=== PATIENT | male | born 1940 | race Caucasian/White ===

== ENCOUNTER 2016-06-13 08:54 | Emergency (ER) | payer MEDICARE, MEDICAID ==
--- NOTE | 2016-06-13 11:08 | ER Document Report ---
ED General - General Chief Complaint: Fall Stated Complaint: HEAD/ELBOW INJURY TRAVEL OUTSIDE OF THE [place] IN LAST 30 DAYS: No - HPI Patient complains to provider of: fall Notes: Patient's coming in for evaluation of fall at a local group home facility. Patient does have a history of dementia. Most of the history of present illness is obtained from EMS report printed patient fell getting out of bed. No loss of consciousness. Patient does have 2 skin abrasions to the right elbow. Patient does have a small laceration to the top of scalp bleeding is controlled. No signs of any other significant trauma patient is alert to voice upon evaluation - Related Data Allergies/Adverse Reactions: codeine [Codeine] Allergy (Verified 01/05/14 21:17) morphine [Morphine] Allergy (Verified 01/05/14 21:17) Past Medical History - Social History Smoking Status: Never Smoker Chew tobacco use (# tins/day): No Frequency of alcohol use: None Drug Abuse: None Family History: Arthritis, DM, Hypertension, Malignancy - Past Medical History Cardiac Medical History: Reports: Hx Coronary Artery Disease, Hx Hypercholesterolemia, Hx Hypertension Endocrine Medical History: Reports: Hx Diabetes Mellitus Type 2 GI Medical History: Reports: Hx Diverticulitis Musculoskeltal Medical History: Reports Hx Arthritis Psychiatric Medical History: Reports: Hx Dementia Past Surgical History: Reports: Hx Abdominal Surgery - to remove pencil, Hx Bowel Surgery - diverticulitis, Hx Cardiac Surgery - X2 stents placed - Immunizations Immunizations up to date: Yes Hx Diphtheria, Pertussis, Tetanus Vaccination: Yes Review of Systems - Review of Systems Notes: Dementia -: Yes ROS unobtainable due to patient's medical condition Physical Exam - Vital signs Vitals: Temp Pulse Resp BP Pulse Ox 97.3 F 65 16 145/56 H 98 06/13/16 09:15 06/13/16 09:15 06/13/16 09:15 06/13/16 09:15 06/13/16 09:15 Interpretation: Normal - General General appearance: Appears well, Alert - HEENT Head: Normocephalic, Atraumatic, Other - Patient with a 2 cm superficial laceration to the top of the scalp right side Eyes: Normal Pupils: PERRL Pharynx: Normal Neck: Normal - Respiratory Respiratory status: No respiratory distress Chest status: Nontender Breath sounds: Normal Chest palpation: Normal - Cardiovascular Rhythm: Regular Heart sounds: Normal auscultation Murmur: No - Abdominal Inspection: Normal Distension: No distension Bowel sounds: Normal Tenderness: Nontender Organomegaly: No organomegaly - Back Back: Normal, Nontender - Extremities General upper extremity: Normal inspection, Nontender, Normal color, Normal ROM , Normal temperature. No: Other - Abrasions to the right elbow General lower extremity: Normal inspection, Nontender, Normal color, Normal ROM , Normal temperature, Normal weight bearing. No: Swapna's sign - Neurological Neuro grossly intact: Yes [place] Coma Scale Eye Opening: Spontaneous [place] Coma Scale Verbal: Confused [place]on Coma Scale Motor: Obeys Commands [place] Coma Scale Total: 14 Speech: Normal - Psychological Associated symptoms: Normal affect, Normal mood - Skin Skin Temperature: Warm Skin Moisture: Dry Skin Color: Normal Course - Re-evaluation Re-evalutation: 06/13/16 14:35 The lacerations and abrasions were cleaned and dressed. Nurse apply Steri- Strips and Dermabond to the superficial lacerations of the scalp. Set DTs negative for any acute traumatic findings. Patient was discharged home - Vital Signs Vital signs: Temp Pulse Resp BP Pulse Ox 97.4 F 65 14 190/73 H 98 06/13/16 12:06 06/13/16 12:06 06/13/16 12:06 06/13/16 12:06 06/13/16 12:06 Procedures - Laceration/Wound Repair Head Wound length (cm): 2 Wound's Depth, Shape: Superficial, Linear Wound explored: Clean Irrigated w/ Saline (mLs): 500 Wound Repaired With: Steri-strips, Dermabond Post-procedure NV exam normal: Yes Complications: No Discharge - Discharge Clinical Impression: Abrasion of right arm Qualifiers: Encounter type: initial encounter Qualified Code(s): S40.811A - Abrasion of right upper arm, initial encounter Scalp laceration Qualifiers: Encounter type: initial encounter Qualified Code(s): S01.01XA - Laceration without foreign body of scalp, initial encounter Fall at group home Qualifiers: Encounter type: initial encounter Qualified Code(s): W19.XXXA - Unspecified fall, initial encounter Condition: Good Disposition: HOME-SNF (ED ONLY) Instructions: Skin Adhesive Closure ([facility]), Skin Tear ([facility]) Additional Instructions: Please provide good wound care. Please provide a safe environment for the patient to prevent falls. CT scan of the head was negative for any acute traumatic findings. Patient will be discharged back recommend patient follow- up primary care in 1 week Referrals: LING BANUELOS MD [Primary Care Provider] - Follow up as needed
[2016-06-13 12:11] VITALS: BP 190/73
== END 2016-06-13 13:49 ==
LOC: ER 08:54
PROC: 0HQ0XZZ Repair Scalp Skin, External Approach (ICD-10-PCS; principal; 2016-06-13)
DX: S40.811A Abrasion of right upper arm, initial encounter (principal); S01.01XA Laceration without foreign body of scalp, initial encounter; W19.XXXA Unspecified fall, initial encounter; Y92.129 Unspecified place in nursing home as the place of occurrence of the external cause
CPT/HCPCS: 70450; 99284

== ENCOUNTER 2016-07-07 14:29 | Inpatient (IN) | payer MEDICARE, MEDICAID ==
--- NOTE | 2016-07-07 14:58 | ER Document Report ---
ED General - General Stated Complaint: ALTERED MENTAL STATUS Time Seen by Provider: 07/07/16 14:43 Mode of Arrival: Medic Information source: Patient Notes: 75-year-old male history of dementia prostate enlargement presents from care facility where he was found altered minimally responsive with decreased oral intake over the past 2 days. Appears that nursing staff there does not believe there is anything wrong with the patient, daughter noted patient was not acting appropriately and requested EMS TRAVEL OUTSIDE OF THE [place] IN LAST 30 DAYS: No - HPI Onset: Other - 2 day duration Onset/Duration: Persistent Quality of pain: No pain Severity: Moderate Pain Level: Denies Associated symptoms: Weakness Exacerbated by: Denies Relieved by: Denies Similar symptoms previously: No Recently seen / treated by doctor: No - Related Data Allergies/Adverse Reactions: codeine [Codeine] Allergy (Verified 07/07/16 15:24) morphine [Morphine] Allergy (Verified 07/07/16 15:24) Past Medical History - Social History Smoking Status: Never Smoker Cigarette use (# per day): No Chew tobacco use (# tins/day): No Smoking Education Provided: No Family History: Arthritis, DM, Hypertension, Malignancy - Past Medical History Cardiac Medical History: Reports: Hx Coronary Artery Disease, Hx Hypercholesterolemia, Hx Hypertension Endocrine Medical History: Reports: Hx Diabetes Mellitus Type 2 GI Medical History: Reports: Hx Diverticulitis Musculoskeltal Medical History: Reports Hx Arthritis Psychiatric Medical History: Reports: Hx Dementia Past Surgical History: Reports: Hx Abdominal Surgery - to remove pencil, Hx Bowel Surgery - diverticulitis, Hx Cardiac Surgery - X2 stents placed - Immunizations Immunizations up to date: Yes Hx Diphtheria, Pertussis, Tetanus Vaccination: Yes Review of Systems - Review of Systems Notes: PHYSICAL EXAMINATION: GENERAL: ill appearing male, altered HEAD: abrasion to scalp EYES: Pupils equal round and reactive to light, extraocular movements intact, sclera anicteric, conjunctiva are normal. ENT: Nares patent, oropharynx clear without exudates. Moist mucous membranes. NECK: Normal range of motion, supple without lymphadenopathy LUNGS: Breath sounds clear to auscultation bilaterally and equal. No wheezes rales or rhonchi. HEART: Regular rate and rhythm without murmurs ABDOMEN: distended bladder Musculoskeletal: Normal range of motion, no pitting or edema. No cyanosis. NEUROLOGICAL: altered gcs 12 SKIN: left forearm abrasion well healing Physical Exam - Vital signs Vitals: Temp Pulse Resp BP Pulse Ox 97.5 F 60 22 H 197/55 H 93 07/07/16 14:44 07/07/16 14:44 07/07/16 14:44 07/07/16 14:44 07/07/16 14:44 Course - Re-evaluation Re-evalutation: 07/07/16 15:01 Patient has probable urinary retention is quite hypertensive, Peters has been ordered septic workup pending 07/07/16 15:22 Patient has put out 1600 cc of urine immediately upon placement of Peters 07/07/16 16:52 Renal failure with hyperkalemia is noted 07/07/16 16:59 Dr Mariano has been called at request of family to update him of patients poor prognosis - Vital Signs Vital signs: Temp Pulse Resp BP Pulse Ox 97.5 F 60 16 192/90 H 95 07/07/16 14:44 07/07/16 14:44 07/07/16 16:01 07/07/16 16:01 07/07/16 16:01 - Laboratory Result Diagrams: 07/07/16 15:19 07/07/16 15:19 Laboratory results interpreted by me: 07/07/16 07/07/16 07/07/16 15:19 15:19 15:19 WBC 11.3 H RBC 4.20 L Hgb 11.7 L Hct 35.7 L RDW 14.1 H Seg Neutrophils % 78.4 H Lymphocytes % 8.3 L Absolute Neutrophils 8.9 H Potassium 6.7 H* Carbon Dioxide 18 L Anion Gap 20 H BUN 140 H Creatinine 14.75 H Est GFR ( Amer) 4 L Est GFR (Non-Af Amer) 3 L Lactic Acid 0.6 L AST 13 L Total Protein 6.2 L Critical Care Note - Critical Care Note Total time excluding time spent on procedures (mins): 44 Comments: 44 minutes of critical care time spent in direct contact evaluating and reevaluating the patient, treating symptoms, reviewing labs and studies and speaking with family and consultants excluding any procedures Discharge - Discharge Clinical Impression: DNR (do not resuscitate), Hyperkalemia, Urinary retention HTN (hypertension) Qualifiers: Hypertension type: essential hypertension Qualified Code(s): I10 - Essential ( primary) hypertension Acute renal failure Qualifiers: Acute renal failure type: unspecified Qualified Code(s): N17.9 - Acute kidney failure, unspecified Condition: Critical Disposition: ADMITTED INPATIENT Admitting Provider: Hospitalist Unit Admitted: Telemetry
[2016-07-07 15:39] LABS: ABSOLUTE BASOPHILS # (AUTO) 0.1 10^3/uL (0.0-0.2); ABSOLUTE EOSINOPHILS # (AUTO) 0.4 10^3/uL (0.0-0.6); ABSOLUTE LYMPHOCYTES (AUTO) 0.9 10^3/uL (0.5-4.7); ABSOLUTE NEUT (AUTO) 8.9 10^3/uL (1.7-8.2); BASOPHILS % (AUTO) 0.6 % (0-2); EOSINOPHILS % (AUTO) 3.8 % (0-6); HEMATOCRIT 35.7 % (37.9-51.0); HEMOGLOBIN 11.7 g/dL (13.5-17.0); HGB HCT DIFFERENCE -0.6; LYMPHOCYTES % (AUTO) 8.3 % (13-45); MEAN CORPUSCULAR HEMOGLOBIN 27.9 pg (27.0-33.4); MEAN CORPUSCULAR HGB CONC 32.8 g/dL (32.0-36.0); MEAN CORPUSCULAR VOLUME 85 fl (80-97); MONOCYTES % (AUTO) 8.9 % (3-13); RED CELL DISTRIBUTION WIDTH 14.1 % (11.5-14.0); SEGMENTED NEUTROPHILS % (AUTO) 78.4 % (42-78); WHITE BLOOD COUNT 11.3 10^3/uL (4.0-10.5)
--- NOTE | 2016-07-07 15:40 | RADIOLOGY REPORT (SQ) ---
EXAM DESCRIPTION: CHEST SINGLE VIEW COMPLETED DATE/TIME: 07/07/2016 3:28 pm REASON FOR STUDY: alterd COMPARISON: 06/15/2014. EXAM PARAMETERS: NUMBER OF VIEWS: One view. TECHNIQUE: Single frontal radiographic view of the chest acquired. RADIATION DOSE: NA LIMITATIONS: None. FINDINGS: LUNGS AND PLEURA: No opacities, masses or pneumothorax. No pleural effusion. MEDIASTINUM AND HILAR STRUCTURES: No masses. Contour normal. HEART AND VASCULAR STRUCTURES: Heart normal in size. Normal vasculature. BONES: No acute findings. Old rib fractures. Chronic changes in the left shoulder. HARDWARE: None in the chest. OTHER: No other significant finding. IMPRESSION: NO ACUTE RADIOGRAPHIC FINDING IN THE CHEST. TECHNICAL DOCUMENTATION: JOB ID: [id number]
[2016-07-07 15:52] LABS: PROTHROMBIN TIME 15.1 SEC (11.4-15.4)
[2016-07-07 15:57] LABS: ALANINE AMINOTRANSFERASE 25 U/L (21-72); ALBUMIN 3.5 g/dL (3.5-5.0); ALKALINE PHOSPHATASE 76 U/L (38-126); ASPARTATE AMINO TRANSFERASE 13 U/L (17-59); BILIRUBIN,DIRECT 0.3 mg/dL (0.0-0.4); BILIRUBIN,TOTAL 0.3 mg/dL (0.2-1.3); CHLORIDE 102 mmol/L (98-107); GLUCOSE 86 mg/dL (75-110); TOTAL PROTEIN 6.2 g/dL (6.3-8.2)
[2016-07-07 16:12] LABS: BLOOD UREA NITROGEN 140 mg/dL (7-20); CREATININE RESULT 14.75 mg/dL (0.52-1.25)
[2016-07-07 16:21] LABS: CARBON DIOXIDE 18 mmol/L (22-30); SODIUM 139.8 mmol/L (137-145)
[2016-07-07 16:22] LABS: ANION GAP 20 (5-19); POTASSIUM 6.7 mmol/L (3.6-5.0)
[2016-07-07] MEDS ORDERED: NORMAL SALINE 1000 ML 1,000 ML IV ONE (16:32)
[2016-07-07] MEDS ORDERED: ALBUTEROL SULFATE 0.083% NEB 2.5 MG/3 ML AMPUL NEB ONE (16:52)
[2016-07-07] MEDS ORDERED: SODIUM BICARBONATE 8.4% INJ 50 MEQ/50 ML DISP.SYRIN IV ONE (16:52)
[2016-07-07] MEDS ORDERED: INSULIN REG, HUMAN 100 UNIT/ML 3 ML VIAL (PYX) IV ONE (16:52)
[2016-07-07] MEDS ORDERED: DEXTROSE 50%-WATER 25 GM/50 ML DISP.SYRIN IV ONE (16:52)
--- NOTE | 2016-07-07 17:25 | EKG REPORT ---
SEVERITY:- ABNORMAL ECG - SINUS RHYTHM LEFT VENTRICULAR HYPERTROPHY PVC : Confirmed by: Denis Farooq MD 07-Jul-2016 17:25:19
[2016-07-07] MEDS ORDERED: SODIUM BICARBONATE IV PRN ×2 (17:42)
[2016-07-07] MEDS ORDERED: 1/2 NORMAL SALINE IV PRN ×2 (17:42)
[2016-07-07] MEDS ORDERED: DEXTROSE 5% IV PRN ×2 (17:42)
[2016-07-07 17:47] LABS: APPEARANCE,URINE SLIGHTLY-CLOUDY; BILIRUBIN,URINE NEGATIVE (NEGATIVE); GLUCOSE, URINE NEGATIVE (NEGATIVE); KETONES,URINE NEGATIVE (NEGATIVE); LEUKOCYTE ESTERASE,URINE NEGATIVE (NEGATIVE); NITRITE,URINE NEGATIVE (NEGATIVE); PROTEIN,URINE NEGATIVE (NEGATIVE); URINE SPECIFIC GRAVITY 1.009; UROBILINOGEN,URINE NEGATIVE mg/dL (<2.0)
--- NOTE | 2016-07-07 18:28 | PDOC H&P ---
History of Present Illness Admission Date/PCP: LING BANUELOS MD Patient complains of: Altered mental status History of Present Illness: BLAKE FRANZ is a 75 year old male with baseline dementia with a functional status, resident of a [facility], who had a subacute general decline over the course of several days. He developed altered mental status. He gradually became less communicative, less interactive, and stopped eating and drinking. In the emergency room he was found to have urinary retention. After insertion of the Peters catheter, 2.6 L of urine was drained. Subsequent urine was slightly bloody and has continued to drain. The patient's serum BUN was 140, creatinine 14.75 with a reported baseline of 0.9. His potassium was 6.7, lactic acid 0.6, and the rest of his screening laboratories were generally unrevealing. The patient has a DNR status. Options were presented to the family by the emergency department staff. They did not wish to pursue possible hemodialysis. They accepted an admission simply for IV fluid administration in the hopes of regaining significant renal function. The patient is therefore admitted for IV fluid hydration and laboratory monitoring. Past Medical History Cardiac Medical History: Reports: Coronary Artery Disease, Hyperlipidema, Hypertension Endocrine Medical History: Reports: Diabetes Mellitus Type 2 Renal/ Medical History: Reports: Other - BPH GI Medical History: Reports: Diverticulitis Musculoskeltal Medical History: Reports: Arthritis Psychiatric Medical History: Reports: Dementia Social History Information Source: POA - Power of Manager Administrative Services - Daughter Lives with: Skilled Nursing Smoking Status: Never Smoker - Advance Directive Resuscitation Status: Do Not Resuscitate Family History Family History: Arthritis, DM, Hypertension, Malignancy Parental Family History Reviewed: No Children Family History Reviewed: No Sibling(s) Family History Reviewed.: No Medication/Allergy Home Medications: Aspirin [Aspirin 81 mg Chewable Tablet] 81 mg PO DAILY 08/11/13 Cholecalciferol (Vitamin D3) [Vitamin D] 2,000 unit PO DAILY 08/11/13 Divalproex Sodium [Depakote] 125 mg PO TID 08/11/13 Donepezil HCl 5 mg PO QHS 08/11/13 Fludrocortisone Acetate [Florinef 0.1 mg Tablet] 0.1 mg PO DAILY 08/11/13 Iron 65 mg PO DAILY 08/11/13 Levothyroxine Sodium 75 mcg PO DAILY 08/11/13 Lisinopril [Prinivil 40 mg Tablet] 20 mg PO DAILY 08/11/13 Metformin HCl [Glucophage] 500 mg PO BID 08/11/13 Pravastatin Sodium [Pravachol] 40 mg PO QHS 08/11/13 Venlafaxine HCl [Venlafaxine HCl ER] 75 mg PO QID 08/11/13 Metoprolol Succinate [Toprol Xl 50 mg Tab.sr] 0.5 tab PO DAILY 01/01/14 Alprazolam [Xanax 0.5 Mg Tablet] 1 tab PO Q8HP PRN #25 tablet 06/15/14 Amox Tr/Potassium Clavulanate [Augmentin 875-125 Tablet] 1 tab PO BID #20 tablet 12/27/14 Hydrocodone/Acetaminophen [Vicodin 5-300 mg Tablet] 1 - 2 tab PO ASDIR PRN #15 tab 12/27/14 Allergies/Adverse Reactions: codeine [Codeine] Allergy (Verified 07/07/16 15:24) morphine [Morphine] Allergy (Verified 07/07/16 15:24) Review of Systems ROS unobtainable: Due to mental status Physical Exam Vital Signs: Temp Pulse Resp BP Pulse Ox 97.5 F 60 16 192/90 H 95 07/07/16 14:44 07/07/16 14:44 07/07/16 16:01 07/07/16 16:01 07/07/16 16:01 Intake & Output 07/06/16 07/07/16 07/08/16 06:59 06:59 06:59 Output Total 1999 Balance -1999 Weight 90.718 kg General appearance: PRESENT: other - moderate distress, jerky tremor of all fours Head exam: PRESENT: atraumatic, normocephalic Eye exam: PRESENT: conjunctiva pink, EOMI, PERRLA. ABSENT: scleral icterus Ear exam: PRESENT: normal external ear exam Mouth exam: PRESENT: dry mucosa Neck exam: ABSENT: carotid bruit, JVD, lymphadenopathy, thyromegaly Respiratory exam: PRESENT: clear to auscultation yoandy. ABSENT: rales, rhonchi, wheezes Cardiovascular exam: PRESENT: RRR. ABSENT: diastolic murmur, rubs, systolic murmur Pulses: PRESENT: normal dorsalis pedis pul Vascular exam: PRESENT: normal capillary refill GI/Abdominal exam: PRESENT: normal bowel sounds, soft. ABSENT: distended, guarding, mass, organolmegaly, rebound, tenderness Rectal exam: PRESENT: deferred Gentrourinary exam: PRESENT: other - Peters inserted in ED Extremities exam: PRESENT: full ROM. ABSENT: calf tenderness, clubbing, pedal edema Musculoskeletal exam: PRESENT: other - changes of osteoarthritis Neurological exam: PRESENT: altered Psychiatric exam: PRESENT: agitated Skin exam: PRESENT: dry, intact, warm. ABSENT: cyanosis, rash Results Laboratory Results: 07/07/16 15:19 07/07/16 15:19 07/07/16 07/07/16 07/07/16 15:19 15:19 15:19 WBC 11.3 H RBC 4.20 L Hgb 11.7 L Hct 35.7 L MCV 85 MCH 27.9 MCHC 32.8 RDW 14.1 H Plt Count 227 Seg Neutrophils % 78.4 H Lymphocytes % 8.3 L Monocytes % 8.9 Eosinophils % 3.8 Basophils % 0.6 Absolute Neutrophils 8.9 H Absolute Lymphocytes 0.9 Absolute Monocytes 1.0 Absolute Eosinophils 0.4 Absolute Basophils 0.1 Sodium 139.8 Potassium 6.7 H* Chloride 102 Carbon Dioxide 18 L Anion Gap 20 H BUN 140 H Creatinine 14.75 H Est GFR ( Amer) 4 L Est GFR (Non-Af Amer) 3 L Glucose 86 Lactic Acid 0.6 L Calcium 10.0 Total Bilirubin 0.3 AST 13 L ALT 25 Alkaline Phosphatase 76 Total Protein 6.2 L Albumin 3.5 Urine Color Urine Appearance Urine pH Ur Specific Talent Urine Protein Urine Glucose (UA) Urine Ketones Urine Blood Urine Nitrite Ur Leukocyte Esterase Urine WBC (Auto) Urine RBC (Auto) 07/07/16 15:19 WBC RBC Hgb Hct MCV MCH MCHC RDW Plt Count Seg Neutrophils % Lymphocytes % Monocytes % Eosinophils % Basophils % Absolute Neutrophils Absolute Lymphocytes Absolute Monocytes Absolute Eosinophils Absolute Basophils Sodium Potassium Chloride Carbon Dioxide Anion Gap BUN Creatinine Est GFR ( Amer) Est GFR (Non-Af Amer) Glucose Lactic Acid Calcium Total Bilirubin AST ALT Alkaline Phosphatase Total Protein Albumin Urine Color YELLOW Urine Appearance SLIGHTLY-CLOUDY Urine pH 5.0 Ur Specific Talent 1.009 Urine Protein NEGATIVE Urine Glucose (UA) NEGATIVE Urine Ketones NEGATIVE Urine Blood MODERATE H Urine Nitrite NEGATIVE Ur Leukocyte Esterase NEGATIVE Urine WBC (Auto) 2 Urine RBC (Auto) 5 Impressions: Chest X-Ray 07/07/16 14:43 IMPRESSION: NO ACUTE RADIOGRAPHIC FINDING IN THE CHEST. Assessment & Plan - Diagnosis (1) Acute kidney injury Is this a current diagnosis for this admission?: YesPlan: The overall plan for this patient's acute kidney injury is conservative. The family does not wish to pursue any possible hemodialysis. They elect simple IV fluid hydration, laboratory monitoring, and hoping for the best. (2) Urinary retention due to benign prostatic hyperplasia Is this a current diagnosis for this admission?: YesPlan: Peters catheter in place. (3) Hyperkalemia Is this a current diagnosis for this admission?: YesPlan: We will monitor with IV fluid hydration. (4) HTN (hypertension) Qualifiers: Hypertension type: essential hypertension Qualified Code(s): I10 - Essential (primary) hypertension Is this a current diagnosis for this admission?: YesPlan: Continue Rx as at the [facility]. (5) DM2 (diabetes mellitus, type 2) Qualifiers: Diabetes mellitus complication status: with unspecified complications Diabetes mellitus skilled nursing insulin use: unspecified intermediate accountant insulin use status Qualified Code(s): E11.8 - Type 2 diabetes mellitus with unspecified complications Is this a current diagnosis for this admission?: YesPlan: Continue Rx as at the [facility]. (6) Dementia Qualifiers: Dementia type: unspecified type Is this a current diagnosis for this admission?: YesPlan: Continue Rx as at the [facility].
[2016-07-07] MEDS ORDERED: HYDRALAZINE HCL INJ/PF 20 MG/1 ML SDV IV PRN (18:42)
[2016-07-07] MEDS: HYDROMORPHONE HCL INJ/PF 2 MG/ML AMPULE IV PRN (18:59)
[2016-07-07 20:57] LABS: VENOUS BLOOD BASE EXCESS -2.5 mmol/L; VENOUS BLOOD HCO3 23.3 mmol/L (20-32); VENOUS BLOOD PCO2 44.2 mmHg (35-63); VENOUS BLOOD PH 7.34 (7.30-7.42)
[2016-07-07] MEDS ORDERED: SODIUM BICARBONATE 8.4% INJ 50 MEQ/50 ML DISP.SYRIN ONE (21:38)
[2016-07-07] MEDS ORDERED: FAMOTIDINE 20 MG TABLET PO ONE (22:00)
[2016-07-07] MEDS ORDERED: FAMOTIDINE 20 MG TABLET PO SCH (22:00)
[2016-07-07] MEDS: DEXTROSE 5%-WATER 1000 ML 1,000 ML with SODIUM BICARBONATE 150 MEQ IV PRN ×2 (23:27)
[2016-07-08 04:51] LABS: ABSOLUTE EOSINOPHILS # (AUTO) 0.5 10^3/uL (0.0-0.6); ABSOLUTE LYMPHOCYTES (AUTO) 0.9 10^3/uL (0.5-4.7); ABSOLUTE MONOCYTES (AUTO) 0.9 10^3/uL (0.1-1.4); ABSOLUTE NEUT (AUTO) 5.2 10^3/uL (1.7-8.2); BASOPHILS % (AUTO) 0.6 % (0-2); EOSINOPHILS % (AUTO) 7.1 % (0-6); HEMATOCRIT 31.8 % (37.9-51.0); HEMOGLOBIN 10.8 g/dL (13.5-17.0); HGB HCT DIFFERENCE 0.6; LYMPHOCYTES % (AUTO) 11.7 % (13-45); MEAN CORPUSCULAR HEMOGLOBIN 28.3 pg (27.0-33.4); MEAN CORPUSCULAR HGB CONC 33.8 g/dL (32.0-36.0); MEAN CORPUSCULAR VOLUME 84 fl (80-97); MONOCYTES % (AUTO) 11.4 % (3-13); RED CELL DISTRIBUTION WIDTH 14.1 % (11.5-14.0); SEGMENTED NEUTROPHILS % (AUTO) 69.2 % (42-78); WHITE BLOOD COUNT 7.5 10^3/uL (4.0-10.5)
[2016-07-08 04:57] LABS: ANION GAP 14 (5-19); CALCIUM 9.6 mg/dL (8.4-10.2); CARBON DIOXIDE 27 mmol/L (22-30); CHLORIDE 107 mmol/L (98-107); CREATININE RESULT 7.25 mg/dL (0.52-1.25); GLUCOSE 99 mg/dL (75-110); SODIUM 148.2 mmol/L (137-145)
[2016-07-08 05:09] LABS: BLOOD UREA NITROGEN 101 mg/dL (7-20); POTASSIUM 4.3 mmol/L (3.6-5.0)
[2016-07-08] MEDS: ENOXAPARIN SODIUM INJ 30 MG/0.3 ML DISP.SYRIN SUBCUT SCH (09:37)
[2016-07-08] MEDS ORDERED: FAMOTIDINE 20 MG TABLET PO ONE (11:00)
--- NOTE | 2016-07-08 12:21 | PDOC PROGRESS REPORT ---
Subjective Progress Note for:: 07/08/16 Subjective:: BLAKE FRANZ is a 75 year old male with baseline dementia with a functional status, resident of a long-term, who had a subacute general decline over the course of several days. He developed altered mental status. He gradually became less communicative, less interactive, and stopped eating and drinking. In the emergency room he was found to have urinary retention. After insertion of the Peters catheter, 2.6 L of urine was drained. Subsequent urine was slightly bloody and has continued to drain. The patient's serum BUN was 140, creatinine 14.75 with a reported baseline of 0.9. His potassium was 6.7, lactic acid 0.6, and the rest of his screening laboratories were generally unrevealing. The patient has a DNR status. Options were presented to the family by the emergency department staff. They did not wish to pursue possible hemodialysis. They accepted an admission simply for IV fluid administration in the hopes of regaining significant renal function. The patient was therefore admitted for IV fluid hydration and laboratory monitoring. This morning the patient is still somnolent but more arousable. Vital signs have remained stable. Laboratories are improved as detailed below. Physical Exam Vital Signs: Temp Pulse Resp BP Pulse Ox 97.3 F 72 16 182/80 H 96 07/08/16 09:00 07/08/16 09:00 07/08/16 09:00 07/08/16 09:00 07/08/16 09:00 Intake & Output 07/07/16 07/08/16 07/09/16 06:59 06:59 06:59 Intake Total 618 Output Total 3900 Balance -3282 Weight 62.8 kg Additional comments: General appearance: PRESENT: other - no distress, now with only minimal jerkiness Head exam: PRESENT: atraumatic, normocephalic Eye exam: PRESENT: conjunctiva pink, EOMI, PERRLA. ABSENT: scleral icterus Ear exam: PRESENT: normal external ear exam Mouth exam: PRESENT: dry mucosa Neck exam: ABSENT: carotid bruit, JVD, lymphadenopathy, thyromegaly Respiratory exam: PRESENT: clear to auscultation yoandy. ABSENT: rales, rhonchi, wheezes Cardiovascular exam: PRESENT: RRR. ABSENT: diastolic murmur, rubs, systolic murmur Pulses: PRESENT: normal dorsalis pedis pul Vascular exam: PRESENT: normal capillary refill GI/Abdominal exam: PRESENT: normal bowel sounds, soft. ABSENT: distended, guarding, mass, organolmegaly, rebound, tenderness Rectal exam: PRESENT: deferred Gentrourinary exam: PRESENT: other - Peters inserted in ED Extremities exam: PRESENT: full ROM. ABSENT: calf tenderness, clubbing, pedal edema Musculoskeletal exam: PRESENT: other - changes of osteoarthritis Neurological exam: PRESENT: altered Psychiatric exam: PRESENT: no longer agitated Skin exam: PRESENT: dry, intact, warm. ABSENT: cyanosis, rash Results Laboratory Results: 07/08/16 04:00 07/08/16 04:00 07/07/16 07/08/16 07/08/16 20:50 04:00 04:00 WBC 7.5 RBC 3.80 L Hgb 10.8 L Hct 31.8 L MCV 84 MCH 28.3 MCHC 33.8 RDW 14.1 H Plt Count 242 Seg Neutrophils % 69.2 Lymphocytes % 11.7 L Monocytes % 11.4 Eosinophils % 7.1 H Basophils % 0.6 Absolute Neutrophils 5.2 Absolute Lymphocytes 0.9 Absolute Monocytes 0.9 Absolute Eosinophils 0.5 Absolute Basophils 0.0 VBG pH 7.34 VBG pCO2 44.2 VBG HCO3 23.3 VBG Base Excess -2.5 Sodium 148.2 H Potassium 4.3 D Chloride 107 Carbon Dioxide 27 Anion Gap 14 BUN 101 H D Creatinine 7.25 H Est GFR ( Amer) 9 L Est GFR (Non-Af Amer) 7 L Glucose 99 Calcium 9.6 Impressions: Chest X-Ray 07/07/16 14:43 IMPRESSION: NO ACUTE RADIOGRAPHIC FINDING IN THE CHEST. Assessment & Plan - Diagnosis (1) Acute kidney injury Is this a current diagnosis for this admission?: YesPlan: The overall plan for this patient's acute kidney injury is conservative. The family does not wish to pursue any possible hemodialysis. They elect simple IV fluid hydration, laboratory monitoring, and hoping for the best. Today the renal function labs are improved but still severely deranged. Will continue IV fluids and monitoring. (2) Urinary retention due to benign prostatic hyperplasia Is this a current diagnosis for this admission?: YesPlan: Peters catheter in place. Have resumed Flomax. Consider Proscar. (3) Hyperkalemia Is this a current diagnosis for this admission?: YesPlan: Corrected. (4) HTN (hypertension) Qualifiers: Hypertension type: essential hypertension Qualified Code(s): I10 - Essential (primary) hypertension Is this a current diagnosis for this admission?: YesPlan: Continue Rx as at the long-term. (5) DM2 (diabetes mellitus, type 2) Qualifiers: Diabetes mellitus complication status: with unspecified complications Diabetes mellitus custodial insulin use: unspecified custodial insulin use status Qualified Code(s): E11.8 - Type 2 diabetes mellitus with unspecified complications; Z79.4 - long term care social worker (current) use of insulin Is this a current diagnosis for this admission?: YesPlan: Continue Rx as at the long-term. (6) Dementia Qualifiers: Dementia type: unspecified type Is this a current diagnosis for this admission?: YesPlan: Continue Rx as at the long-term.
[2016-07-08] MEDS ORDERED: TAMSULOSIN HCL 0.4 MG CAP.SR.24H PO ONE (13:00)
[2016-07-08] MEDS: HYDRALAZINE HCL INJ/PF 20 MG/1 ML SDV IV PRN (16:08)
[2016-07-08] MEDS: HYDROMORPHONE HCL INJ/PF 2 MG/ML AMPULE IV PRN (16:10)
[2016-07-08] MEDS: DEXTROSE 5%-WATER 1000 ML 1,000 ML with SODIUM BICARBONATE 150 MEQ IV PRN ×2 (18:01)
[2016-07-08] MEDS: FAMOTIDINE 20 MG TABLET PO SCH (21:12)
[2016-07-08] MEDS: DONEPEZIL HCL 5 MG TABLET PO SCH (21:12)
[2016-07-08] MEDS: VENLAFAXINE HCL 75 MG CAP.SR.24H PO SCH (21:12)
[2016-07-08] MEDS ORDERED: METOPROLOL TARTRATE 25 MG TABLET PO SCH (22:00)
[2016-07-08] MEDS ORDERED: (PENDING PHARMACY ID) (Donepezil Hcl [Aricept] 10 MG) PO SCH (22:00)
[2016-07-09 05:27] LABS: ABSOLUTE BASOPHILS # (AUTO) 0.1 10^3/uL (0.0-0.2); ABSOLUTE EOSINOPHILS # (AUTO) 0.5 10^3/uL (0.0-0.6); ABSOLUTE LYMPHOCYTES (AUTO) 0.9 10^3/uL (0.5-4.7); ABSOLUTE NEUT (AUTO) 8.5 10^3/uL (1.7-8.2); BASOPHILS % (AUTO) 0.5 % (0-2); EOSINOPHILS % (AUTO) 4.6 % (0-6); HEMATOCRIT 37.8 % (37.9-51.0); HEMOGLOBIN 12.4 g/dL (13.5-17.0); HGB HCT DIFFERENCE -0.6; LYMPHOCYTES % (AUTO) 7.9 % (13-45); MEAN CORPUSCULAR HEMOGLOBIN 28.3 pg (27.0-33.4); MEAN CORPUSCULAR HGB CONC 32.9 g/dL (32.0-36.0); MEAN CORPUSCULAR VOLUME 86 fl (80-97); MONOCYTES % (AUTO) 8.9 % (3-13); RED BLOOD COUNT 4.39 10^6/uL (4.35-5.55); RED CELL DISTRIBUTION WIDTH 13.9 % (11.5-14.0); SEGMENTED NEUTROPHILS % (AUTO) 78.1 % (42-78); WHITE BLOOD COUNT 10.9 10^3/uL (4.0-10.5)
[2016-07-09] MEDS: LEVOTHYROXINE SODIUM 0.075 MG TABLET PO SCH (05:31)
[2016-07-09 05:47] LABS: ANION GAP 15 (5-19); CALCIUM 9.8 mg/dL (8.4-10.2); CARBON DIOXIDE 34 mmol/L (22-30); CHLORIDE 105 mmol/L (98-107); CREATININE RESULT 2.39 mg/dL (0.52-1.25); GLUCOSE 135 mg/dL (75-110); POTASSIUM 4.2 mmol/L (3.6-5.0); SODIUM 153.6 mmol/L (137-145)
[2016-07-09 06:00] LABS: BLOOD UREA NITROGEN 52 mg/dL (7-20)
[2016-07-09] MEDS: VENLAFAXINE HCL 75 MG CAP.SR.24H PO SCH ×2 (09:29→21:19)
[2016-07-09] MEDS: METOPROLOL TARTRATE 25 MG TABLET PO SCH ×2 (09:29→21:20)
[2016-07-09] MEDS: FAMOTIDINE 20 MG TABLET PO SCH ×2 (09:29→21:18)
[2016-07-09] MEDS: TAMSULOSIN HCL 0.4 MG CAP.SR.24H PO SCH (09:29)
[2016-07-09] MEDS: DEXTROSE 5%-1/2 NORMAL SALINE 1,000 ML IV PRN (09:30)
[2016-07-09] MEDS: ASPIRIN 81 MG TABLET, ENT COATED PO SCH (09:33)
[2016-07-09] MEDS: ENOXAPARIN SODIUM INJ 30 MG/0.3 ML DISP.SYRIN SUBCUT SCH (09:34)
[2016-07-09] MEDS: CHOLECALCIFEROL (D3) 400 UNIT TABLET PO SCH (09:34)
[2016-07-09] MEDS: HYDRALAZINE HCL INJ/PF 20 MG/1 ML SDV IV PRN (09:35)
[2016-07-09] MEDS ORDERED: (PENDING PHARMACY ID) (Lisinopril [Prinivil] 20 MG) PO SCH (10:00)
[2016-07-09] MEDS ORDERED: LEVOTHYROXINE SODIUM 0.075 MG TABLET PO SCH (10:00)
[2016-07-09] MEDS ORDERED: LISINOPRIL 10 MG TABLET PO SCH (10:00)
--- NOTE | 2016-07-09 15:29 | PDOC PROGRESS REPORT ---
Subjective Progress Note for:: 07/09/16 Subjective:: reason for visit: f/u renal failure, hypernatremia, hyperkalemia, HTN hospital course: per other's notes - "BLAKE FRANZ is a 75 year old male with baseline dementia with a functional status, resident of a detention, who had a subacute general decline over the course of several days. He developed altered mental status. He gradually became less communicative, less interactive, and stopped eating and drinking. In the emergency room he was found to have urinary retention. After insertion of the Golden catheter, 2.6 L of urine was drained. Subsequent urine was slightly bloody and has continued to drain. The patient's serum BUN was 140, creatinine 14.75 with a reported baseline of 0.9. His potassium was 6.7, lactic acid 0.6, and the rest of his screening laboratories were generally unrevealing. The patient has a DNR status. Options were presented to the family by the emergency department staff. They did not wish to pursue possible hemodialysis. They accepted an admission simply for IV fluid administration in the hopes of regaining significant renal function. The patient was therefore admitted for IV fluid hydration and laboratory monitoring." I inherited his care Cinthia and found him pleasantly confused with family at bedside. golden remains in place with good urine output. ROS: is unobtainable from pt due to his dementia Physical Exam Vital Signs: Temp Pulse Resp BP Pulse Ox 97.5 F 88 17 146/76 H 94 07/09/16 11:54 07/09/16 11:54 07/09/16 11:54 07/09/16 11:54 07/09/16 11:54 Intake & Output 07/08/16 07/09/16 07/10/16 06:59 06:59 06:59 Intake Total 618 1375 Output Total 3900 1650 Balance -3282 -275 Weight 62.8 kg 62.9 kg General appearance: PRESENT: no acute distress - family reports he is back to his baseline, cooperative, well-developed, well-nourished Head exam: PRESENT: atraumatic, normocephalic Eye exam: PRESENT: EOMI. ABSENT: scleral icterus Mouth exam: PRESENT: dry mucosa, neck supple Neck exam: PRESENT: full ROM. ABSENT: tenderness Respiratory exam: PRESENT: clear to auscultation yoandy, unlabored Cardiovascular exam: PRESENT: RRR, systolic murmur Pulses: PRESENT: normal carotid pulses, normal radial pulses GI/Abdominal exam: PRESENT: normal bowel sounds, soft. ABSENT: tenderness Extremities exam: PRESENT: pedal edema. ABSENT: calf tenderness Musculoskeletal exam: PRESENT: full ROM Neurological exam: PRESENT: alert, awake, oriented to person. ABSENT: oriented to place, oriented to time, oriented to situation Psychiatric exam: ABSENT: agitated, anxious, manic Focused psych exam: PRESENT: flight of ideas Skin exam: PRESENT: dry, warm Results Laboratory Results: 07/09/16 03:55 07/09/16 03:55 07/09/16 07/09/16 03:55 03:55 WBC 10.9 H RBC 4.39 Hgb 12.4 L Hct 37.8 L MCV 86 MCH 28.3 MCHC 32.9 RDW 13.9 Plt Count 273 Seg Neutrophils % 78.1 H Lymphocytes % 7.9 L Monocytes % 8.9 Eosinophils % 4.6 Basophils % 0.5 Absolute Neutrophils 8.5 H Absolute Lymphocytes 0.9 Absolute Monocytes 1.0 Absolute Eosinophils 0.5 Absolute Basophils 0.1 Sodium 153.6 H Potassium 4.2 Chloride 105 Carbon Dioxide 34 H Anion Gap 15 BUN 52 H D Creatinine 2.39 H Est GFR ( Amer) 32 L Est GFR (Non-Af Amer) 27 L Glucose 135 H Calcium 9.8 Impressions: Chest X-Ray 07/07/16 14:43 IMPRESSION: NO ACUTE RADIOGRAPHIC FINDING IN THE CHEST. Assessment & Plan - Diagnosis (1) Urinary retention Is this a current diagnosis for this admission?: YesPlan: probably 2/2 BPH, improved with golden catheter. continue flomax and consider golden removal tomorrow, per family they want it out if possible. (2) Acute renal failure Qualifiers: Acute renal failure type: unspecified Qualified Code(s): N17.9 - Acute kidney failure, unspecified Is this a current diagnosis for this admission?: YesPlan: improved but not back to baseline. Scr 02/2016 = 0.9. still with good urine output (3) DM2 (diabetes mellitus, type 2) Qualifiers: Diabetes mellitus complication status: with unspecified complications Diabetes mellitus care home insulin use: unspecified care home insulin use status Qualified Code(s): E11.8 - Type 2 diabetes mellitus with unspecified complications; Z79.4 - shelter (current) use of insulin Is this a current diagnosis for this admission?: YesPlan: controlled. by hx but his last several Hg A1c <5.5 and CBGs here are good, last one 88. (5) Dementia Qualifiers: Dementia type: unspecified type Is this a current diagnosis for this admission?: YesPlan: family reports he is back to baseline and has a waxing/waning course per his norm (6) HTN (hypertension) Qualifiers: Hypertension type: essential hypertension Qualified Code(s): I10 - Essential (primary) hypertension Is this a current diagnosis for this admission?: YesPlan: worse; place ACEi on hold due to renal failure, increase toprol and monitor for effect (7) Hyperkalemia Is this a current diagnosis for this admission?: YesPlan: resolved with IVFs - Time Time Spent with patient: 35 or more minutes - d/w daughter at bedside for over half this time Medications reviewed and adjusted accordingly: Yes
[2016-07-09] MEDS: DONEPEZIL HCL 5 MG TABLET PO SCH (21:19)
[2016-07-09] MEDS: HYDROMORPHONE HCL INJ/PF 2 MG/ML AMPULE IV PRN (23:01)
[2016-07-10] MEDS: HYDROMORPHONE HCL INJ/PF 2 MG/ML AMPULE IV PRN (04:00)
[2016-07-10 04:57] LABS: ABSOLUTE BASOPHILS # (AUTO) 0.1 10^3/uL (0.0-0.2); ABSOLUTE EOSINOPHILS # (AUTO) 0.7 10^3/uL (0.0-0.6); ABSOLUTE LYMPHOCYTES (AUTO) 1.4 10^3/uL (0.5-4.7); ABSOLUTE NEUT (AUTO) 5.6 10^3/uL (1.7-8.2); BASOPHILS % (AUTO) 0.8 % (0-2); EOSINOPHILS % (AUTO) 7.7 % (0-6); HEMATOCRIT 35.5 % (37.9-51.0); HEMOGLOBIN 11.5 g/dL (13.5-17.0); LYMPHOCYTES % (AUTO) 15.8 % (13-45); MEAN CORPUSCULAR HEMOGLOBIN 27.8 pg (27.0-33.4); MEAN CORPUSCULAR HGB CONC 32.3 g/dL (32.0-36.0); MEAN CORPUSCULAR VOLUME 86 fl (80-97); MONOCYTES % (AUTO) 11.5 % (3-13); RED BLOOD COUNT 4.12 10^6/uL (4.35-5.55); RED CELL DISTRIBUTION WIDTH 13.7 % (11.5-14.0); SEGMENTED NEUTROPHILS % (AUTO) 64.2 % (42-78); WHITE BLOOD COUNT 8.8 10^3/uL (4.0-10.5)
[2016-07-10 05:14] LABS: ANION GAP 11 (5-19); BLOOD UREA NITROGEN 26 mg/dL (7-20); CALCIUM 9.3 mg/dL (8.4-10.2); CARBON DIOXIDE 32 mmol/L (22-30); CHLORIDE 107 mmol/L (98-107); CREATININE RESULT 1.37 mg/dL (0.52-1.25); GLUCOSE 81 mg/dL (75-110); POTASSIUM 3.5 mmol/L (3.6-5.0)
[2016-07-10] MEDS: LEVOTHYROXINE SODIUM 0.075 MG TABLET PO SCH (06:51)
[2016-07-10] MEDS ORDERED: LORAZEPAM INJ 2 MG/1 ML VIAL IV PRN (09:24)
[2016-07-10] MEDS: TAMSULOSIN HCL 0.4 MG CAP.SR.24H PO SCH (11:08)
[2016-07-10] MEDS: FAMOTIDINE 20 MG TABLET PO SCH ×2 (11:08→23:21)
[2016-07-10] MEDS: VENLAFAXINE HCL 75 MG CAP.SR.24H PO SCH ×2 (11:08→23:20)
[2016-07-10] MEDS: ASPIRIN 81 MG TABLET, ENT COATED PO SCH (11:09)
[2016-07-10] MEDS: METOPROLOL TARTRATE 25 MG TABLET PO SCH ×2 (11:09→23:22)
[2016-07-10] MEDS: ENOXAPARIN SODIUM INJ 30 MG/0.3 ML DISP.SYRIN SUBCUT SCH (11:10)
[2016-07-10] MEDS: CHOLECALCIFEROL (D3) 400 UNIT TABLET PO SCH (11:10)
[2016-07-10] MEDS: DEXTROSE 5%-1/2 NORMAL SALINE 1,000 ML IV PRN (12:35)
--- NOTE | 2016-07-10 13:50 | PDOC PROGRESS REPORT ---
Subjective Progress Note for:: 07/10/16 Subjective:: reason for visit: f/u renal failure, hypernatremia, hyperkalemia, HTN hospital course: per other's notes - "BLAKE FRANZ is a 75 year old male with baseline dementia with a functional status, resident of a [facility], who had a subacute general decline over the course of several days. He developed altered mental status. He gradually became less communicative, less interactive, and stopped eating and drinking. In the emergency room he was found to have urinary retention. After insertion of the Golden catheter, 2.6 L of urine was drained. Subsequent urine was slightly bloody and has continued to drain. The patient's serum BUN was 140, creatinine 14.75 with a reported baseline of 0.9. His potassium was 6.7, lactic acid 0.6, and the rest of his screening laboratories were generally unrevealing. The patient has a DNR status. Options were presented to the family by the emergency department staff. They did not wish to pursue possible hemodialysis. They accepted an admission simply for IV fluid administration in the hopes of regaining significant renal function. The patient was therefore admitted for IV fluid hydration and laboratory monitoring." I inherited his care Friday and found him pleasantly confused with family at bedside. golden remains in place with good urine output however there is a bit of blood in the tubing as of Friday, apparently he became agitated during the night and tried to stand at the bedside thereby tethering his golden in place. I suspect he may have a bit of trauma to his already enlarged prostate as a result. He eventually calmed and went to sleep with the assistance of a sitter at his bedside. fortunately his renal function continues to improve, his Na is down to 150 from a peak of 153 Friday and his BP has improved with change in his toprol ROS: is unobtainable from pt due to his dementia Physical Exam Vital Signs: Temp Pulse Resp BP Pulse Ox 97.5 F 64 15 147/67 H 97 07/10/16 12:00 07/10/16 12:00 07/10/16 12:00 07/10/16 12:07/10/16 12:00 Intake & Output 07/09/16 07/10/16 07/11/16 06:59 06:59 06:59 Intake Total 1375 3378 160 Output Total 1650 1475 Balance -275 1903 160 Weight 62.9 kg 62 kg General appearance: PRESENT: no acute distress, well-developed, well-nourished Head exam: PRESENT: atraumatic, normocephalic Eye exam: ABSENT: conjunctival injection, scleral icterus Mouth exam: PRESENT: moist, neck supple Neck exam: ABSENT: tracheal deviation Respiratory exam: PRESENT: clear to auscultation yoandy. ABSENT: accessory muscle use Cardiovascular exam: PRESENT: RRR. ABSENT: systolic murmur Pulses: PRESENT: normal radial pulses, normal dorsalis pedis pul GI/Abdominal exam: PRESENT: normal bowel sounds, soft. ABSENT: guarding, tenderness Extremities exam: PRESENT: pedal edema - trace Musculoskeletal exam: PRESENT: full ROM Neurological exam: PRESENT: altered - pleasantly confused again this morning Skin exam: PRESENT: dry, warm Results Laboratory Results: 07/10/16 03:56 07/10/16 03:56 07/10/16 07/10/16 03:56 03:56 WBC 8.8 RBC 4.12 L Hgb 11.5 L Hct 35.5 L MCV 86 MCH 27.8 MCHC 32.3 RDW 13.7 Plt Count 262 Seg Neutrophils % 64.2 Lymphocytes % 15.8 Monocytes % 11.5 Eosinophils % 7.7 H Basophils % 0.8 Absolute Neutrophils 5.6 Absolute Lymphocytes 1.4 Absolute Monocytes 1.0 Absolute Eosinophils 0.7 H Absolute Basophils 0.1 Sodium 150.0 H Potassium 3.5 L Chloride 107 Carbon Dioxide 32 H Anion Gap 11 BUN 26 H Creatinine 1.37 H Est GFR ( Amer) > 60 Est GFR (Non-Af Amer) 51 L Glucose 81 Calcium 9.3 Impressions: Chest X-Ray 07/07/16 14:43 IMPRESSION: NO ACUTE RADIOGRAPHIC FINDING IN THE CHEST. Assessment & Plan - Diagnosis (1) Urinary retention Is this a current diagnosis for this admission?: YesPlan: probably 2/2 BPH, improved with golden catheter. continue flomax and re-eval golden daily, need to make sure the gross hematuria clears, will have nursing reposition and flush this morning and monitor for results. (2) Acute renal failure Qualifiers: Acute renal failure type: unspecified Qualified Code(s): N17.9 - Acute kidney failure, unspecified Is this a current diagnosis for this admission?: YesPlan: improved but not back to baseline. Scr 02/2016 = 0.9. 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 will add low dose BZD which he has taken as needed in the recent past (6) HTN (hypertension) Qualifiers: Hypertension type: essential hypertension Qualified Code(s): I10 - Essential (primary) hypertension Is this a current diagnosis for this admission?: YesPlan: improved; placed ACEi on hold due to renal failure, continue toprol and monitor for effect (7) Hyperkalemia Is this a current diagnosis for this admission?: YesPlan: resolved with IVFs - Time Time Spent with patient: 25-34 minutes Anticipated discharge: SNF Within: within 24 hours
[2016-07-10] MEDS: ALPRAZOLAM 0.5 MG TABLET PO SCH (23:21)
[2016-07-10] MEDS: DONEPEZIL HCL 5 MG TABLET PO SCH (23:21)
[2016-07-11] MEDS: HYDRALAZINE HCL INJ/PF 20 MG/1 ML SDV IV PRN (01:04)
[2016-07-11] MEDS: DEXTROSE 5%-1/2 NORMAL SALINE 1,000 ML IV PRN (02:01)
[2016-07-11 04:27] LABS: ANION GAP 9 (5-19); BLOOD UREA NITROGEN 16 mg/dL (7-20); CALCIUM 9.3 mg/dL (8.4-10.2); CARBON DIOXIDE 30 mmol/L (22-30); CHLORIDE 106 mmol/L (98-107); CREATININE RESULT 1.06 mg/dL (0.52-1.25); GLUCOSE 77 mg/dL (75-110); POTASSIUM 3.1 mmol/L (3.6-5.0); SODIUM 144.5 mmol/L (137-145)
[2016-07-11] MEDS: LEVOTHYROXINE SODIUM 0.075 MG TABLET PO SCH (06:04)
[2016-07-11] MEDS: TAMSULOSIN HCL 0.4 MG CAP.SR.24H PO SCH (07:38)
[2016-07-11] MEDS: ENOXAPARIN SODIUM INJ 30 MG/0.3 ML DISP.SYRIN SUBCUT SCH (07:43)
[2016-07-11] MEDS: VENLAFAXINE HCL 75 MG CAP.SR.24H PO SCH ×2 (09:25→21:15)
[2016-07-11] MEDS: FAMOTIDINE 20 MG TABLET PO SCH ×2 (09:25→21:15)
[2016-07-11] MEDS: CHOLECALCIFEROL (D3) 400 UNIT TABLET PO SCH (09:25)
[2016-07-11] MEDS: METOPROLOL TARTRATE 25 MG TABLET PO SCH ×2 (09:25→21:15)
[2016-07-11] MEDS: ASPIRIN 81 MG TABLET, ENT COATED PO SCH (09:25)
[2016-07-11] MEDS ORDERED: BISACODYL 10 MG SUPP.RECT PR PRN (09:51)
[2016-07-11] MEDS: SENNOSIDES/DOCUSATE 8.6-50 MG 1 EACH TABLET PO SCH ×2 (10:30→17:31)
[2016-07-11] MEDS ORDERED: POTASSIUM CHLORIDE 20 MEQ/15 ML UDCUP PO ONE (11:00)
--- NOTE | 2016-07-11 15:34 | PDOC PROGRESS REPORT ---
Subjective Progress Note for:: 07/11/16 Subjective:: reason for visit: f/u renal failure, hypernatremia, hyperkalemia, HTN hospital course: per other's notes - "BLAKE FRANZ is a 75 year old male with baseline dementia with a functional status, resident of a long term, who had a subacute general decline over the course of several days. He developed altered mental status. He gradually became less communicative, less interactive, and stopped eating and drinking. In the emergency room he was found to have urinary retention. After insertion of the Golden catheter, 2.6 L of urine was drained. Subsequent urine was slightly bloody and has continued to drain. The patient's serum BUN was 140, creatinine 14.75 with a reported baseline of 0.9. His potassium was 6.7, lactic acid 0.6, and the rest of his screening laboratories were generally unrevealing. The patient has a DNR status. Options were presented to the family by the emergency department staff. They did not wish to pursue possible hemodialysis. They accepted an admission simply for IV fluid administration in the hopes of regaining significant renal function. The patient was therefore admitted for IV fluid hydration and laboratory monitoring." I inherited his care Friday and found him pleasantly confused with family at bedside. golden remains in place with good urine output however there is a bit of blood in the tubing as of Friday, apparently he became agitated during the night and tried to stand at the bedside thereby tethering his golden in place. I suspect he may have a bit of trauma to his already enlarged prostate as a result. He eventually calmed and went to sleep with the assistance of a sitter at his bedside. fortunately his renal function continues to improve, his Na is down to 144 from a peak of 153 Friday and his BP has improved with change in his toprol ROS: is unobtainable from pt due to his dementia Physical Exam Vital Signs: Temp Pulse Resp BP Pulse Ox 97.7 F 54 L 15 161/79 H 100 07/11/16 11:10 07/11/16 11:10 07/11/16 11:10 07/11/16 11:10 07/11/16 11:10 Intake & Output 07/10/16 07/11/16 07/12/16 06:59 06:59 06:59 Intake Total 3378 2319 230 Output Total 1475 1200 150 Balance 1903 1119 80 Weight 62 kg 63.2 kg General appearance: PRESENT: no acute distress - pleasantly demented, well- developed, well-nourished Head exam: PRESENT: atraumatic, normocephalic Eye exam: ABSENT: conjunctival injection, scleral icterus Neck exam: PRESENT: full ROM. ABSENT: tenderness Respiratory exam: PRESENT: clear to auscultation yoandy. ABSENT: accessory muscle use Cardiovascular exam: PRESENT: RRR. ABSENT: diastolic murmur Pulses: PRESENT: normal radial pulses, normal dorsalis pedis pul GI/Abdominal exam: PRESENT: normal bowel sounds, soft. ABSENT: tenderness Extremities exam: ABSENT: calf tenderness, pedal edema Neurological exam: PRESENT: altered, oriented to person. ABSENT: oriented to place, oriented to time, oriented to situation Psychiatric exam: PRESENT: normal mood Skin exam: PRESENT: dry, warm Results Laboratory Results: 07/10/16 03:56 07/11/16 03:55 07/11/16 03:55 Sodium 144.5 Potassium 3.1 L Chloride 106 Carbon Dioxide 30 Anion Gap 9 BUN 16 Creatinine 1.06 Est GFR ( Amer) > 60 Est GFR (Non-Af Amer) > 60 Glucose 77 Calcium 9.3 Impressions: Chest X-Ray 07/07/16 14:43 IMPRESSION: NO ACUTE RADIOGRAPHIC FINDING IN THE CHEST. Assessment & Plan - Diagnosis (1) Urinary retention Is this a current diagnosis for this admission?: Yes (2) Acute renal failure Qualifiers: Acute renal failure type: unspecified Qualified Code(s): N17.9 - Acute kidney failure, unspecified Is this a current diagnosis for this admission?: Yes (3) DM2 (diabetes mellitus, type 2) Qualifiers: Diabetes mellitus complication status: with unspecified complications Diabetes mellitus terminal worker insulin use: unspecified terminal worker insulin use status Qualified Code(s): E11.8 - Type 2 diabetes mellitus with unspecified complications; Z79.4 - ferry terminal agent (current) use of insulin Is this a current diagnosis for this admission?: Yes (5) Dementia Qualifiers: Dementia type: unspecified type Is this a current diagnosis for this admission?: Yes (6) HTN (hypertension) Qualifiers: Hypertension type: essential hypertension Qualified Code(s): I10 - Essential (primary) hypertension Is this a current diagnosis for this admission?: YesPlan: improved; placed ACEi on hold due to renal failure, continue toprol, add norvasc and monitor for effect (7) Hyperkalemia Is this a current diagnosis for this admission?: Yes - Time Time Spent with patient: 25-34 minutes - Plan Summary Plan Summary: awaiting bed placement, he is stable for discharge. golden has cleared, no furhter gross bleeding noted today
[2016-07-11] MEDS: ALPRAZOLAM 0.5 MG TABLET PO SCH (21:15)
[2016-07-11] MEDS: DONEPEZIL HCL 5 MG TABLET PO SCH (21:15)
[2016-07-11] MEDS: AMLODIPINE BESYLATE 10 MG TABLET PO SCH (21:15)
[2016-07-11] MEDS: POTASSIUM CHLORIDE 20 MEQ/15 ML UDCUP PO SCH (21:15)
[2016-07-12] MEDS: LEVOTHYROXINE SODIUM 0.075 MG TABLET PO SCH (05:19)
[2016-07-12] MEDS: ENOXAPARIN SODIUM INJ 30 MG/0.3 ML DISP.SYRIN SUBCUT SCH (08:34)
[2016-07-12] MEDS: TAMSULOSIN HCL 0.4 MG CAP.SR.24H PO SCH (08:34)
[2016-07-12] MEDS: CHOLECALCIFEROL (D3) 400 UNIT TABLET PO SCH (10:01)
[2016-07-12] MEDS: POTASSIUM CHLORIDE 20 MEQ/15 ML UDCUP PO SCH ×2 (10:01→21:07)
[2016-07-12] MEDS: ASPIRIN 81 MG TABLET, ENT COATED PO SCH (10:01)
[2016-07-12] MEDS: SENNOSIDES/DOCUSATE 8.6-50 MG 1 EACH TABLET PO SCH ×2 (10:02→18:59)
[2016-07-12] MEDS: METOPROLOL TARTRATE 25 MG TABLET PO SCH ×2 (10:02→21:07)
[2016-07-12] MEDS: FAMOTIDINE 20 MG TABLET PO SCH ×2 (10:02→21:07)
[2016-07-12] MEDS: VENLAFAXINE HCL 75 MG CAP.SR.24H PO SCH ×2 (10:03→21:07)
--- NOTE | 2016-07-12 14:48 | PDOC PROGRESS REPORT ---
Subjective Progress Note for:: 07/12/16 Subjective:: reason for visit: f/u renal failure, hypernatremia, hyperkalemia, HTN hospital course: per other's notes - "BLAKE FRANZ is a 75 year old male with baseline dementia with a functional status, resident of a [facility], who had a subacute general decline over the course of several days. He developed altered mental status. He gradually became less communicative, less interactive, and stopped eating and drinking. In the emergency room he was found to have urinary retention. After insertion of the Golden catheter, 2.6 L of urine was drained. Subsequent urine was slightly bloody and has continued to drain. The patient's serum BUN was 140, creatinine 14.75 with a reported baseline of 0.9. His potassium was 6.7, lactic acid 0.6, and the rest of his screening laboratories were generally unrevealing. The patient has a DNR status. Options were presented to the family by the emergency department staff. They did not wish to pursue possible hemodialysis. They accepted an admission simply for IV fluid administration in the hopes of regaining significant renal function. The patient was therefore admitted for IV fluid hydration and laboratory monitoring." I inherited his care Friday and found him pleasantly confused with family at bedside. golden remains in place with good urine output however there is a bit of blood in the tubing as of Friday, apparently he became agitated during the night and tried to stand at the bedside thereby tethering his golden in place. I suspect he may have a bit of trauma to his already enlarged prostate as a result. He eventually calmed and went to sleep with the assistance of a sitter at his bedside. fortunately his renal function continues to improve, his Na is down to normal from a peak of 153 Friday and his BP has improved with change in his toprol ROS: is unobtainable from pt due to his dementia Physical Exam Vital Signs: Temp Pulse Resp BP Pulse Ox 98.6 F 65 18 149/60 H 100 07/12/16 11:05 07/12/16 11:05 07/12/16 11:05 07/12/16 11:05 07/12/16 11:05 Intake & Output 07/11/16 07/12/16 07/13/16 06:59 06:59 06:59 Intake Total 2319 1130 Output Total 1200 950 Balance 1119 180 Weight 63.2 kg 67.7 kg General appearance: PRESENT: no acute distress, well-developed, well-nourished Head exam: PRESENT: atraumatic, normocephalic Eye exam: ABSENT: conjunctival injection, scleral icterus Neck exam: PRESENT: full ROM. ABSENT: tenderness Respiratory exam: PRESENT: clear to auscultation yoandy. ABSENT: accessory muscle use Cardiovascular exam: PRESENT: RRR. ABSENT: tachycardia Pulses: PRESENT: normal radial pulses, normal dorsalis pedis pul GI/Abdominal exam: PRESENT: normal bowel sounds - 3 BMs overnight, soft. ABSENT : tenderness Gentrourinary exam: PRESENT: indwelling catheter. ABSENT: scrotal swelling Extremities exam: ABSENT: calf tenderness, pedal edema Neurological exam: PRESENT: alert, awake, oriented to person. ABSENT: oriented to place, oriented to time, oriented to situation Skin exam: PRESENT: dry, warm Results Laboratory Results: 07/10/16 03:56 07/11/16 03:55 Impressions: Chest X-Ray 07/07/16 14:43 IMPRESSION: NO ACUTE RADIOGRAPHIC FINDING IN THE CHEST. Assessment & Plan - Diagnosis (1) Urinary retention Is this a current diagnosis for this admission?: YesPlan: probably 2/2 BPH, improved with golden catheter. 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 insulin use: unspecified centrifugal station operator insulin use status Qualified Code(s): E11.8 - Type 2 diabetes mellitus with unspecified complications; Z79.4 - electrical discharge machine operator (current) use of insulin Is this a current diagnosis for this admission?: Yes (5) Dementia Qualifiers: Dementia type: unspecified type Is this a current diagnosis for this admission?: Yes (6) HTN (hypertension) Qualifiers: Hypertension type: essential hypertension Qualified Code(s): I10 - Essential (primary) hypertension Is this a current diagnosis for this admission?: YesPlan: improved, continue current regimen (7) Hyperkalemia Is this a current diagnosis for this admission?: Yes - Time Time Spent with patient: 15-24 minutes
[2016-07-12] MEDS: LORAZEPAM 0.5 MG TABLET PO PRN (20:20)
[2016-07-12] MEDS: ALPRAZOLAM 0.5 MG TABLET PO SCH (21:07)
[2016-07-12] MEDS: DONEPEZIL HCL 5 MG TABLET PO SCH (21:07)
[2016-07-12] MEDS: AMLODIPINE BESYLATE 10 MG TABLET PO SCH (21:07)
[2016-07-12] MEDS: HYDROMORPHONE HCL INJ/PF 2 MG/ML AMPULE IV PRN (22:21)
--- NOTE | 2016-07-13 12:33 | PDOC PROGRESS REPORT ---
Subjective Progress Note for:: 07/13/16 Subjective:: reason for visit: f/u renal failure, hypernatremia, hyperkalemia, HTN hospital course: per other's notes - "BLAKE FRANZ is a 75 year old male with baseline dementia with a functional status, resident of a [facility], who had a subacute general decline over the course of several days. He developed altered mental status. He gradually became less communicative, less interactive, and stopped eating and drinking. In the emergency room he was found to have urinary retention. After insertion of the Golden catheter, 2.6 L of urine was drained. Subsequent urine was slightly bloody and has continued to drain. The patient's serum BUN was 140, creatinine 14.75 with a reported baseline of 0.9. His potassium was 6.7, lactic acid 0.6, and the rest of his screening laboratories were generally unrevealing. The patient has a DNR status. Options were presented to the family by the emergency department staff. They did not wish to pursue possible hemodialysis. They accepted an admission simply for IV fluid administration in the hopes of regaining significant renal function. The patient was therefore admitted for IV fluid hydration and laboratory monitoring." I inherited his care Friday and found him pleasantly confused with family at bedside. golden remains in place with good urine output however there is a bit of blood in the tubing as of Friday, apparently he became agitated during the night and tried to stand at the bedside thereby tethering his golden in place. I suspect he may have a bit of trauma to his already enlarged prostate as a result. He eventually calmed and went to sleep with the assistance of a sitter at his bedside. fortunately his renal function continues to improve, his Na is down to normal from a peak of 153 Friday and his BP has improved with change in his toprol ROS: is unobtainable from pt due to his dementia Physical Exam Vital Signs: Temp Pulse Resp BP Pulse Ox 97.5 F 53 L 20 141/51 H 98 07/13/16 11:23 07/13/16 11:23 07/13/16 11:23 07/13/16 11:23 07/13/16 11:23 Intake & Output 07/12/16 07/13/16 07/14/16 06:59 06:59 06:59 Intake Total 1130 600 Output Total 950 600 Balance 180 0 Weight 67.7 kg 67.7 kg General appearance: PRESENT: well-developed, well-nourished. ABSENT: no acute distress Head exam: PRESENT: atraumatic, normocephalic Eye exam: ABSENT: conjunctival injection, scleral icterus Mouth exam: PRESENT: dry mucosa Teeth exam: PRESENT: edentulous Neck exam: ABSENT: tracheal deviation Respiratory exam: PRESENT: clear to auscultation yoandy. ABSENT: accessory muscle use Cardiovascular exam: PRESENT: RRR. ABSENT: systolic murmur GI/Abdominal exam: PRESENT: normal bowel sounds, soft. ABSENT: tenderness Gentrourinary exam: PRESENT: indwelling catheter - clear yellow urine Musculoskeletal exam: PRESENT: full ROM Neurological exam: PRESENT: awake, oriented to person. ABSENT: oriented to place, oriented to time, oriented to situation Psychiatric exam: PRESENT: appropriate affect, normal mood Skin exam: PRESENT: dry, warm Results Laboratory Results: 07/10/16 03:56 07/11/16 03:55 07/07/16 20:50 Blood Blood Culture - Final NO GROWTH IN 5 DAYS Impressions: Chest X-Ray 07/07/16 14:43 IMPRESSION: NO ACUTE RADIOGRAPHIC FINDING IN THE CHEST. Assessment & Plan - Diagnosis (1) Urinary retention Is this a current diagnosis for this admission?: Yes (2) Acute renal failure Qualifiers: Acute renal failure type: unspecified Qualified Code(s): N17.9 - Acute kidney failure, unspecified Is this a current diagnosis for this admission?: Yes (3) DM2 (diabetes mellitus, type 2) Qualifiers: Diabetes mellitus complication status: with unspecified complications Diabetes mellitus emt intermediate insulin use: unspecified emt intermediate insulin use status Qualified Code(s): E11.8 - Type 2 diabetes mellitus with unspecified complications; Z79.4 - emt intermediate (current) use of insulin Is this a current diagnosis for this admission?: Yes (5) Dementia Qualifiers: Dementia type: unspecified type Is this a current diagnosis for this admission?: Yes (6) HTN (hypertension) Qualifiers: Hypertension type: essential hypertension Qualified Code(s): I10 - Essential (primary) hypertension Is this a current diagnosis for this admission?: Yes (7) Hyperkalemia Is this a current diagnosis for this admission?: Yes - Time Time Spent with patient: 15-24 minutes Anticipated discharge: SNF Within: within 24 hours - Plan Summary Plan Summary: stable for d/c to SNF when suitable bed available.
[2016-07-13] MEDS: ENOXAPARIN SODIUM INJ 30 MG/0.3 ML DISP.SYRIN SUBCUT SCH (13:38)
[2016-07-13] MEDS: METOPROLOL TARTRATE 25 MG TABLET PO SCH ×2 (13:45→21:34)
[2016-07-13] MEDS: SENNOSIDES/DOCUSATE 8.6-50 MG 1 EACH TABLET PO SCH ×2 (13:45→18:28)
[2016-07-13] MEDS: TAMSULOSIN HCL 0.4 MG CAP.SR.24H PO SCH (13:45)
[2016-07-13] MEDS: CHOLECALCIFEROL (D3) 400 UNIT TABLET PO SCH (13:45)
[2016-07-13] MEDS: ASPIRIN 81 MG TABLET, ENT COATED PO SCH (13:45)
[2016-07-13] MEDS: LEVOTHYROXINE SODIUM 0.075 MG TABLET PO SCH (13:45)
[2016-07-13] MEDS: FAMOTIDINE 20 MG TABLET PO SCH ×2 (13:45→21:34)
[2016-07-13] MEDS: VENLAFAXINE HCL 75 MG CAP.SR.24H PO SCH ×2 (13:45→21:34)
[2016-07-13] MEDS: POTASSIUM CHLORIDE 20 MEQ/15 ML UDCUP PO SCH ×2 (16:31→21:34)
[2016-07-13] MEDS: ALPRAZOLAM 0.5 MG TABLET PO SCH (21:34)
[2016-07-13] MEDS: AMLODIPINE BESYLATE 10 MG TABLET PO SCH (21:34)
[2016-07-13] MEDS: DONEPEZIL HCL 5 MG TABLET PO SCH (21:34)
[2016-07-14] MEDS: ENOXAPARIN SODIUM INJ 30 MG/0.3 ML DISP.SYRIN SUBCUT SCH (11:43)
[2016-07-14] MEDS: METOPROLOL TARTRATE 25 MG TABLET PO SCH ×2 (11:52→22:10)
[2016-07-14] MEDS: POTASSIUM CHLORIDE 20 MEQ/15 ML UDCUP PO SCH ×2 (11:52→22:09)
[2016-07-14] MEDS: TAMSULOSIN HCL 0.4 MG CAP.SR.24H PO SCH (11:53)
[2016-07-14] MEDS: LEVOTHYROXINE SODIUM 0.075 MG TABLET PO SCH (11:53)
[2016-07-14] MEDS: VENLAFAXINE HCL 75 MG CAP.SR.24H PO SCH ×2 (11:56→22:10)
[2016-07-14] MEDS: FAMOTIDINE 20 MG TABLET PO SCH ×2 (11:57→22:11)
[2016-07-14] MEDS: ASPIRIN 81 MG TABLET, ENT COATED PO SCH (11:58)
[2016-07-14] MEDS: SENNOSIDES/DOCUSATE 8.6-50 MG 1 EACH TABLET PO SCH ×2 (11:59→17:28)
[2016-07-14] MEDS: CHOLECALCIFEROL (D3) 400 UNIT TABLET PO SCH (12:00)
--- NOTE | 2016-07-14 17:03 | PDOC PROGRESS REPORT ---
Subjective Progress Note for:: 07/14/16 Subjective:: reason for visit: f/u renal failure, hypernatremia, hyperkalemia, HTN hospital course: per other's notes - "BLAKE FRANZ is a 75 year old male with baseline dementia with a functional status, resident of a [facility], who had a subacute general decline over the course of several days. He developed altered mental status. He gradually became less communicative, less interactive, and stopped eating and drinking. In the emergency room he was found to have urinary retention. After insertion of the Golden catheter, 2.6 L of urine was drained. Subsequent urine was slightly bloody and has continued to drain. The patient's serum BUN was 140, creatinine 14.75 with a reported baseline of 0.9. His potassium was 6.7, lactic acid 0.6, and the rest of his screening laboratories were generally unrevealing. The patient has a DNR status. Options were presented to the family by the emergency department staff. They did not wish to pursue possible hemodialysis. They accepted an admission simply for IV fluid administration in the hopes of regaining significant renal function. The patient was therefore admitted for IV fluid hydration and laboratory monitoring." I inherited his care Friday and found him pleasantly confused with family at bedside. golden remains in place with good urine output however there is a bit of blood in the tubing as of Friday, apparently he became agitated during the night and tried to stand at the bedside thereby tethering his golden in place. I suspect he may have a bit of trauma to his already enlarged prostate as a result. He eventually calmed and went to sleep with the assistance of a sitter at his bedside. fortunately his renal function continues to improve, his Na is down to normal from a peak of 153 Friday and his BP has improved with change in his toprol. No real change, he remains stable for placement once bed available. ROS: is unobtainable from pt due to his dementia Physical Exam Vital Signs: Temp Pulse Resp BP Pulse Ox 97.6 F 62 18 132/40 H 98 07/14/16 15:59 07/14/16 15:59 07/14/16 15:59 07/14/16 15:59 07/14/16 15:59 Intake & Output 07/13/16 07/14/16 07/15/16 06:59 06:59 06:59 Intake Total 600 600 864 Output Total 600 875 200 Balance 0 -275 664 Weight 67.7 kg 67 kg General appearance: PRESENT: no acute distress, well-developed, well-nourished Head exam: PRESENT: atraumatic, normocephalic Eye exam: ABSENT: conjunctival injection, scleral icterus Mouth exam: PRESENT: dry mucosa, neck supple Teeth exam: PRESENT: edentulous Neck exam: ABSENT: tracheal deviation Respiratory exam: PRESENT: clear to auscultation yoandy. ABSENT: accessory muscle use, stridor Cardiovascular exam: PRESENT: RRR. ABSENT: systolic murmur, tachycardia GI/Abdominal exam: PRESENT: normal bowel sounds, soft. ABSENT: tenderness Gentrourinary exam: PRESENT: indwelling catheter - clear yellow urine Extremities exam: ABSENT: pedal edema Musculoskeletal exam: PRESENT: full ROM Neurological exam: PRESENT: alert, altered, awake, oriented to person, reflexes normal. ABSENT: oriented to place, oriented to time, oriented to situation Psychiatric exam: PRESENT: appropriate affect, normal mood Skin exam: PRESENT: dry, warm Results Laboratory Results: 07/10/16 03:56 07/11/16 03:55 Impressions: Chest X-Ray 07/07/16 14:43 IMPRESSION: NO ACUTE RADIOGRAPHIC FINDING IN THE CHEST. Assessment & Plan - Diagnosis (1) Urinary retention Is this a current diagnosis for this admission?: Yes (2) Acute renal failure Qualifiers: Acute renal failure type: unspecified Qualified Code(s): N17.9 - Acute kidney failure, unspecified Is this a current diagnosis for this admission?: Yes (3) DM2 (diabetes mellitus, type 2) Qualifiers: Diabetes mellitus complication status: with unspecified complications Diabetes mellitus snf insulin use: unspecified termite control service representative insulin use status Qualified Code(s): E11.8 - Type 2 diabetes mellitus with unspecified complications; Z79.4 - terminal make up operator (current) use of insulin Is this a current diagnosis for this admission?: Yes (5) Dementia Qualifiers: Dementia type: unspecified type Is this a current diagnosis for this admission?: Yes (6) HTN (hypertension) Qualifiers: Hypertension type: essential hypertension Qualified Code(s): I10 - Essential (primary) hypertension Is this a current diagnosis for this admission?: Yes (7) Hyperkalemia Is this a current diagnosis for this admission?: Yes - Time Time Spent with patient: 15-24 minutes Medications reviewed and adjusted accordingly: Yes Anticipated discharge: SNF Within: within 24 hours
[2016-07-14] MEDS: LORAZEPAM 0.5 MG TABLET PO PRN ×2 (18:02→23:50)
[2016-07-14] MEDS: DONEPEZIL HCL 5 MG TABLET PO SCH (22:10)
[2016-07-14] MEDS: ALPRAZOLAM 0.5 MG TABLET PO SCH (22:11)
[2016-07-14] MEDS: AMLODIPINE BESYLATE 10 MG TABLET PO SCH (22:11)
[2016-07-15 05:08] LABS: ABSOLUTE BASOPHILS # (AUTO) 0.1 10^3/uL (0.0-0.2); ABSOLUTE EOSINOPHILS # (AUTO) 0.5 10^3/uL (0.0-0.6); ABSOLUTE LYMPHOCYTES (AUTO) 1.9 10^3/uL (0.5-4.7); ABSOLUTE MONOCYTES (AUTO) 1.3 10^3/uL (0.1-1.4); ABSOLUTE NEUT (AUTO) 9.8 10^3/uL (1.7-8.2); BASOPHILS % (AUTO) 0.7 % (0-2); EOSINOPHILS % (AUTO) 3.5 % (0-6); HEMATOCRIT 32.9 % (37.9-51.0); HEMOGLOBIN 10.9 g/dL (13.5-17.0); HGB HCT DIFFERENCE -0.2; LYMPHOCYTES % (AUTO) 13.7 % (13-45); MEAN CORPUSCULAR HEMOGLOBIN 27.9 pg (27.0-33.4); MEAN CORPUSCULAR HGB CONC 33.1 g/dL (32.0-36.0); MEAN CORPUSCULAR VOLUME 84 fl (80-97); MONOCYTES % (AUTO) 9.9 % (3-13); RED BLOOD COUNT 3.91 10^6/uL (4.35-5.55); RED CELL DISTRIBUTION WIDTH 13.7 % (11.5-14.0); SEGMENTED NEUTROPHILS % (AUTO) 72.2 % (42-78); WHITE BLOOD COUNT 13.6 10^3/uL (4.0-10.5)
[2016-07-15 05:26] LABS: ANION GAP 10 (5-19); BLOOD UREA NITROGEN 18 mg/dL (7-20); CALCIUM 8.8 mg/dL (8.4-10.2); CARBON DIOXIDE 25 mmol/L (22-30); CHLORIDE 104 mmol/L (98-107); CREATININE RESULT 0.97 mg/dL (0.52-1.25); GLUCOSE 74 mg/dL (75-110); POTASSIUM 3.7 mmol/L (3.6-5.0); SODIUM 138.6 mmol/L (137-145)
[2016-07-15] MEDS: LEVOTHYROXINE SODIUM 0.075 MG TABLET PO SCH (06:46)
[2016-07-15 08:10] LABS: APPEARANCE,URINE SLIGHTLY-CLOUDY; BILIRUBIN,URINE NEGATIVE (NEGATIVE); GLUCOSE, URINE NEGATIVE (NEGATIVE); KETONES,URINE NEGATIVE (NEGATIVE); LEUKOCYTE ESTERASE,URINE SMALL (NEGATIVE); NITRITE,URINE NEGATIVE (NEGATIVE); PROTEIN,URINE 100 mg/dL (NEGATIVE); URINE SPECIFIC GRAVITY 1.008; UROBILINOGEN,URINE NEGATIVE mg/dL (<2.0)
--- NOTE | 2016-07-15 12:15 | PDOC PROGRESS REPORT ---
Subjective Progress Note for:: 07/15/16 Subjective:: reason for visit: f/u renal failure, hypernatremia, hyperkalemia, HTN hospital course: per other's notes - "BLAKE FRANZ is a 75 year old male with baseline dementia with a functional status, resident of a [facility], who had a subacute general decline over the course of several days. He developed altered mental status. He gradually became less communicative, less interactive, and stopped eating and drinking. In the emergency room he was found to have urinary retention. After insertion of the Golden catheter, 2.6 L of urine was drained. Subsequent urine was slightly bloody and has continued to drain. The patient's serum BUN was 140, creatinine 14.75 with a reported baseline of 0.9. His potassium was 6.7, lactic acid 0.6, and the rest of his screening laboratories were generally unrevealing. The patient has a DNR status. Options were presented to the family by the emergency department staff. They did not wish to pursue possible hemodialysis. They accepted an admission simply for IV fluid administration in the hopes of regaining significant renal function. The patient was therefore admitted for IV fluid hydration and laboratory monitoring." I inherited his care Friday and found him pleasantly confused with family at bedside. golden remains in place with good urine output however there is a bit of blood in the tubing as of Friday, apparently he became agitated during the night and tried to stand at the bedside thereby tethering his golden in place. I suspect he may have a bit of trauma to his already enlarged prostate as a result. 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 fortunately his renal function continues to improve, his Na is down to normal from a peak of 153 Friday and his BP has improved with change in his toprol. His WBCs shot up this morning and he is having temps 99.0 or greater, no complaints to me this morning, golden remains and urine is a bit cloudy but no gross hematuria present. ROS: is unobtainable from pt due to his dementia Physical Exam Vital Signs: Temp Pulse Resp BP Pulse Ox 98.3 F 59 L 18 128/52 H 98 07/15/16 07:48 07/15/16 07:48 07/15/16 07:48 07/15/16 07:48 07/15/16 07:48 Intake & Output 07/14/16 07/15/16 07/16/16 06:59 06:59 06:59 Intake Total 600 864 Output Total 875 200 Balance -275 664 Weight 67 kg 67 kg General appearance: PRESENT: well-developed, well-nourished. ABSENT: no acute distress Head exam: PRESENT: atraumatic, normocephalic Eye exam: ABSENT: conjunctival injection, scleral icterus Mouth exam: PRESENT: dry mucosa, neck supple Teeth exam: PRESENT: edentulous Neck exam: PRESENT: full ROM. ABSENT: tracheal deviation Respiratory exam: PRESENT: clear to auscultation yoandy. ABSENT: accessory muscle use Cardiovascular exam: PRESENT: RRR. ABSENT: systolic murmur, tachycardia Pulses: PRESENT: normal radial pulses, normal dorsalis pedis pul GI/Abdominal exam: PRESENT: normal bowel sounds, soft. ABSENT: tenderness Gentrourinary exam: PRESENT: indwelling catheter. ABSENT: scrotal swelling Extremities exam: ABSENT: calf tenderness, pedal edema Neurological exam: PRESENT: alert, awake, oriented to person. ABSENT: oriented to place, oriented to time, oriented to situation Focused psych exam: ABSENT: psychomotor agitation Skin exam: PRESENT: dry, warm Results Laboratory Results: 07/15/16 04:10 07/15/16 04:10 07/15/16 07/15/16 07/15/16 04:10 04:10 07:35 WBC 13.6 H RBC 3.91 L Hgb 10.9 L Hct 32.9 L MCV 84 MCH 27.9 MCHC 33.1 RDW 13.7 Plt Count 261 Seg Neutrophils % 72.2 Lymphocytes % 13.7 Monocytes % 9.9 Eosinophils % 3.5 Basophils % 0.7 Absolute Neutrophils 9.8 H Absolute Lymphocytes 1.9 Absolute Monocytes 1.3 Absolute Eosinophils 0.5 Absolute Basophils 0.1 Sodium 138.6 Potassium 3.7 Chloride 104 Carbon Dioxide 25 Anion Gap 10 BUN 18 Creatinine 0.97 Est GFR ( Amer) > 60 Est GFR (Non-Af Amer) > 60 Glucose 74 L Calcium 8.8 Urine Color YELLOW Urine Appearance SLIGHTLY-CLOUDY Urine pH 7.0 Ur Specific [place] 1.008 Urine Protein 100 H Urine Glucose (UA) NEGATIVE Urine Ketones NEGATIVE Urine Blood LARGE H Urine Nitrite NEGATIVE Ur Leukocyte Esterase SMALL H Urine WBC (Auto) 15 Urine RBC (Auto) 43 Impressions: Chest X-Ray 07/07/16 14:43 IMPRESSION: NO ACUTE RADIOGRAPHIC FINDING IN THE CHEST. Assessment & Plan - Diagnosis (1) Acute renal failure Qualifiers: Acute renal failure type: unspecified Qualified Code(s): N17.9 - Acute kidney failure, unspecified Is this a current diagnosis for this admission?: YesPlan: post-obstructive with component of hypovolemia as well. resolved with IVFs and golden catheter (2) Urinary retention Is this a current diagnosis for this admission?: YesPlan: probably 2/2 BPH, improved with golden catheter. continue flomax and re-eval golden daily (3) DM2 (diabetes mellitus, type 2) Qualifiers: Diabetes mellitus complication status: with unspecified complications Diabetes mellitus senior living insulin use: unspecified senior living insulin use status Qualified Code(s): E11.8 - Type 2 diabetes mellitus with unspecified complications; Z79.4 - long-term (current) use of insulin Is this a current diagnosis for this admission?: Yes (5) Dementia Qualifiers: Dementia type: unspecified type Is this a current diagnosis for this admission?: Yes (6) HTN (hypertension) Qualifiers: Hypertension type: essential hypertension Qualified Code(s): I10 - Essential (primary) hypertension Is this a current diagnosis for this admission?: Yes (7) Hyperkalemia Is this a current diagnosis for this admission?: YesPlan: resolved with IVFs (8) Hypernatremia Is this a current diagnosis for this admission?: YesPlan: resolved with IVFs (9) Leukocytosis Qualifiers: Leukocytosis type: unspecified Qualified Code(s): D72.829 - Elevated white blood cell count, unspecified Is this a current diagnosis for this admission?: YesPlan: unclear etiology, UA sent but waiting for cultures or clinical deterioration before initiating abx as we don't know what we are treating. - Time Time Spent with patient: 15-24 minutes Anticipated discharge: SNF Within: within 24 hours - Plan Summary Plan Summary: stable for placement when appropriate bed available
[2016-07-15] MEDS: FAMOTIDINE 20 MG TABLET PO SCH ×2 (12:30→21:26)
[2016-07-15] MEDS: ASPIRIN 81 MG TABLET, ENT COATED PO SCH (12:30)
[2016-07-15] MEDS: VENLAFAXINE HCL 75 MG CAP.SR.24H PO SCH ×2 (12:30→21:26)
[2016-07-15] MEDS: TAMSULOSIN HCL 0.4 MG CAP.SR.24H PO SCH (12:30)
[2016-07-15] MEDS: SENNOSIDES/DOCUSATE 8.6-50 MG 1 EACH TABLET PO SCH ×2 (12:31→17:06)
[2016-07-15] MEDS: POTASSIUM CHLORIDE 20 MEQ/15 ML UDCUP PO SCH ×2 (12:31→21:25)
[2016-07-15] MEDS: CHOLECALCIFEROL (D3) 400 UNIT TABLET PO SCH (12:32)
[2016-07-15] MEDS: ENOXAPARIN SODIUM INJ 30 MG/0.3 ML DISP.SYRIN SUBCUT SCH (12:35)
[2016-07-15] MEDS: METOPROLOL TARTRATE 25 MG TABLET PO SCH ×2 (12:36→21:27)
[2016-07-15] MEDS ORDERED: LORAZEPAM 0.5 MG TABLET PO PRN (13:57)
[2016-07-15] MEDS: AMLODIPINE BESYLATE 10 MG TABLET PO SCH (21:27)
[2016-07-15] MEDS: ALPRAZOLAM 0.5 MG TABLET PO SCH (21:27)
[2016-07-15] MEDS: DONEPEZIL HCL 5 MG TABLET PO SCH (21:27)
[2016-07-16] MEDS: LEVOTHYROXINE SODIUM 0.075 MG TABLET PO SCH (05:46)
[2016-07-16] MEDS: TAMSULOSIN HCL 0.4 MG CAP.SR.24H PO SCH (08:46)
[2016-07-16] MEDS: ENOXAPARIN SODIUM INJ 30 MG/0.3 ML DISP.SYRIN SUBCUT SCH (08:46)
[2016-07-16] MEDS: ASPIRIN 81 MG TABLET, ENT COATED PO SCH (09:44)
[2016-07-16] MEDS: FAMOTIDINE 20 MG TABLET PO SCH (09:44)
[2016-07-16] MEDS: POTASSIUM CHLORIDE 20 MEQ/15 ML UDCUP PO SCH (09:44)
[2016-07-16] MEDS: METOPROLOL TARTRATE 25 MG TABLET PO SCH (09:45)
[2016-07-16] MEDS: VENLAFAXINE HCL 75 MG CAP.SR.24H PO SCH (09:46)
[2016-07-16] MEDS: SENNOSIDES/DOCUSATE 8.6-50 MG 1 EACH TABLET PO SCH (09:55)
[2016-07-16] MEDS: CHOLECALCIFEROL (D3) 400 UNIT TABLET PO SCH (09:55)
[2016-07-16 10:56] LABS: ABSOLUTE BASOPHILS # (AUTO) 0.2 10^3/uL (0.0-0.2); ABSOLUTE EOSINOPHILS # (AUTO) 0.6 10^3/uL (0.0-0.6); ABSOLUTE LYMPHOCYTES (AUTO) 1.8 10^3/uL (0.5-4.7); ABSOLUTE MONOCYTES (AUTO) 1.2 10^3/uL (0.1-1.4); ABSOLUTE NEUT (AUTO) 8.5 10^3/uL (1.7-8.2); BASOPHILS % (AUTO) 1.4 % (0-2); EOSINOPHILS % (AUTO) 5.1 % (0-6); HEMATOCRIT 34.8 % (37.9-51.0); HEMOGLOBIN 11.4 g/dL (13.5-17.0); HGB HCT DIFFERENCE -0.6; LYMPHOCYTES % (AUTO) 14.8 % (13-45); MEAN CORPUSCULAR HEMOGLOBIN 27.8 pg (27.0-33.4); MEAN CORPUSCULAR HGB CONC 32.8 g/dL (32.0-36.0); MEAN CORPUSCULAR VOLUME 85 fl (80-97); MONOCYTES % (AUTO) 9.9 % (3-13); RED BLOOD COUNT 4.11 10^6/uL (4.35-5.55); RED CELL DISTRIBUTION WIDTH 13.6 % (11.5-14.0); SEGMENTED NEUTROPHILS % (AUTO) 68.8 % (42-78); WHITE BLOOD COUNT 12.3 10^3/uL (4.0-10.5)
--- NOTE | 2016-07-16 13:12 | PDOC DISCHARGE SUMMARY ---
General - Admit/Disc Date/PCP Admission Date/Primary Care Provider: 07/07/16 17:42 LING BANUELOS MD Discharge Date: 07/16/16 - Discharge Diagnosis (1) UTI (urinary tract infection) Summary: Proteus mirabilis was found in the urine. The patient on Levaquin (2) Acute renal failure Is this a current diagnosis for this admission?: YesSummary: Acute renal failure was due in part to dehydration as well as retention from bph. it is now resolved with aggressive fluid resuscitation (3) DM2 (diabetes mellitus, type 2) Is this a current diagnosis for this admission?: YesSummary: Diet control (4) Dementia Is this a current diagnosis for this admission?: YesSummary: Continue Aricept (5) Urinary retention due to benign prostatic hyperplasia Is this a current diagnosis for this admission?: Yes - Additional Information Resuscitation Status: Do Not Resuscitate Discharge Diet: Regular Discharge Activity: Activity As Tolerated Home Medications: Aspirin [Aspirin EC] 81 mg PO DAILY 07/08/16 Calcium Carbonate [Os-Hunter 500 mg Tablet (Oyster-Shell)] 500 mg PO Q8 07/08/16 Cholecalciferol (Vitamin D3) [Vitamin D3 400 Unit Tablet] 400 unit PO DAILY Donepezil HCl [Aricept] 10 mg PO QHS 07/08/16 Ferrous Sulfate [Iron] 325 mg PO DAILY 07/08/16 Levothyroxine Sodium [Synthroid 0.075 mg Tablet] 0.075 mg PO DAILY 07/08/16 Melatonin/Pyridoxine [Melatonin 3 mg Tablet] 3 mg PO QHS 07/08/16 Metoprolol Tartrate [Lopressor 25 mg Tablet] 25 mg PO QHS 07/08/16 Pravastatin Sodium [Pravachol] 40 mg PO QPM 07/08/16 Tamsulosin HCl [Flomax 0.4 mg Cap.sr] 0.4 mg PO QAM 07/08/16 Venlafaxine HCl [Effexor Xr] 150 mg PO Q12 07/08/16 Alprazolam [Xanax 0.5 mg Tablet] 0.5 mg PO Q8HP PRN #10 tablet 07/16/16 Amlodipine Besylate [Norvasc 10 mg Tablet] 10 mg PO QHS tablet 07/16/16 Hydrocodone/Acetaminophen [Vicodin 5-300 mg Tablet] 1 tab PO Q6HP PRN #10 tablet 07/16/16 Levofloxacin [Levaquin 500 mg Tablet] 500 mg PO DAILY #7 tablet 07/16/16 History of Present Illness History of Present Illness: HPI as per admitting physician: History of Present Illness Admission Date/PCP: LING BANUELOS MD Patient complains of: Altered mental status History of Present Illness: BLAKE FRANZ is a 75 year old male with baseline dementia with a functional status, resident of a correction, who had a subacute general decline over the course of several days. He developed altered mental status. He gradually became less communicative, less interactive, and stopped eating and drinking. In the emergency room he was found to have urinary retention. After insertion of the Peters catheter, 2.6 L of urine was drained. Subsequent urine was slightly bloody and has continued to drain. The patient's serum BUN was 140, creatinine 14.75 with a reported baseline of 0.9. His potassium was 6.7, lactic acid 0.6, and the rest of his screening laboratories were generally unrevealing. The patient has a DNR status. Options were presented to the family by the emergency department staff. They did not wish to pursue possible hemodialysis. They accepted an admission simply for IV fluid administration in the hopes of regaining significant renal function. The patient is therefore admitted for IV fluid hydration and laboratory monitoring. Hospital Course Hospital Course: The patient did well overall. His renal function arrives with IV fluids. Because of his BPH he does maintain a Peters catheter and will need follow-up as an outpatient. Dialysis did reveal a urinary tract infection with Proteus mirabilis susceptible to Levaquin. Cell count has trended down to 12. We discharged to SNF with a prescription Physical Exam Vital Signs: Temp Pulse Resp BP Pulse Ox 97.6 F 64 16 124/55 L 99 07/16/16 08:00 07/16/16 08:00 07/16/16 08:00 07/16/16 08:00 07/16/16 08:00 Intake & Output 07/15/16 07/16/16 07/17/16 06:59 06:59 06:59 Intake Total 864 440 Output Total 200 500 Balance 664 -60 Weight 67 kg 67 kg Physical exam: General : This is a well-developed undernourished appearing elderly white male resting in bed currently in no acute distress Heart: Regular rate and rhythm no murmurs rubs or gallops. Lungs: Clear to Auscultation bilaterally with equal rise and fall of the chest Abdomen: Distended Extremities: No clubbing cyanosis or edema Neuro: Awake and alert. Pleasantly confused Results Laboratory Results: 07/16/16 10:45 07/15/16 04:10 07/16/16 10:45 WBC 12.3 H RBC 4.11 L Hgb 11.4 L Hct 34.8 L MCV 85 MCH 27.8 MCHC 32.8 RDW 13.6 Plt Count 260 Seg Neutrophils % 68.8 Lymphocytes % 14.8 Monocytes % 9.9 Eosinophils % 5.1 Basophils % 1.4 Absolute Neutrophils 8.5 H Absolute Lymphocytes 1.8 Absolute Monocytes 1.2 Absolute Eosinophils 0.6 Absolute Basophils 0.2 Impressions: Chest X-Ray 07/07/16 14:43 IMPRESSION: NO ACUTE RADIOGRAPHIC FINDING IN THE CHEST. Qualifiers PATEINT BEING DISCHARGED WITH ANY OF THE FOLLOWING DIAGNOSIS?: No Plan Time Spent: Greater than 30 Minutes
[2016-07-16 17:05] VITALS: BP 114/59
== END 2016-07-16 17:05 | DRG 683 ==
LOC: ER 14:29 → EH 17:42 → UNDOADMIN 18:12 → 4N 19:59
PROVIDERS: ADMIT Family Medicine; ATTEND Family Medicine
DX: N17.9 Acute kidney failure, unspecified (principal); N39.0 Urinary tract infection, site not specified; B96.4 Proteus (mirabilis) (morganii) as the cause of diseases classified elsewhere; E87.0 Hyperosmolality and hypernatremia; E87.5 Hyperkalemia; N40.1 Benign prostatic hyperplasia with lower urinary tract symptoms; R33.8 Other retention of urine; E11.9 Type 2 diabetes mellitus without complications; I25.10 Atherosclerotic heart disease of native coronary artery without angina pectoris; I10 Essential (primary) hypertension; M19.90 Unspecified osteoarthritis, unspecified site; F03.90 Unspecified dementia, unspecified severity, without behavioral disturbance, psychotic disturbance, mood disturbance, and anxiety; Z66 Do not resuscitate; Z79.4 Long term (current) use of insulin; Z79.82 Long term (current) use of aspirin; Z79.899 Other long term (current) drug therapy; Z88.8 Allergy status to other drugs, medicaments and biological substances
CPT/HCPCS: 36415; 51701; 51702; 71010; 80048; 80053; 81001; 82803; 82962; 83605; 85025; 85610; 87040; 87086; 93005; 93010; 94640; 96361; 96374; 96375; 99291; J0360; J1170; J1650; J1815; J3490; J7030; J7060